=== PATIENT | male | born 1985 | race Caucasian/White ===

== ENCOUNTER 2019-08-30 14:08 | Outpatient (CLI) | payer BC ==
--- NOTE | 2019-08-30 16:31 | RAD ---
CHEST TWO VIEWS: HISTORY: Cough. COMPARISON: Prior film from September 2016. FINDINGS: The lungs appear clear with no infiltrate. Heart size is upper normal and stable in appearance from t he prior study. Vasculature is upper normal and stable. No effusion. Osseous structures are unremarka ble. IMPRESSION: No acute process. No evidence of interval change. POS: [facility]
== END 2019-08-30 14:09 | disposition home or self-care (01) ==
LOC: SCSRAD 14:08
PROVIDERS: ATTEND Family Medicine
DX: R05 Cough (principal)
CPT/HCPCS: 71046

== ENCOUNTER 2020-11-01 09:44 | Outpatient (CLI) | payer BC ==
--- NOTE | 2020-11-01 14:31 | PET ---
Radionucleotide PET scan with CT attenuation correction HISTORY: Follicular lymphoma grade 1. Initial staging. COMPARISON: CT neck, chest, abdomen, pelvis from [facility] 10/11/2020. FINDINGS: While all of the enlarged lymph nodes detailed on the recent CT exams from [facility] are not hypermetabolic, most are. The hypermetabolic adenopathy is as follows: Right submandibular node 3.1 cm x 2.6 cm max SUV 9.8 Right submental lymph node 4.7 cm x 4.0 cm max SUV 8.5 Right medial jugular node 2.3 cm x 2.0 cm max SUV 8.7 Right prepectoral lymph nodes, largest 1.8 cm x 1.4 cm max SUV 3.4 Right axillary 7.4 cm x 5.7 cm max SUV 19.5 Left retroperitoneal periaortic 4.4 cm x 1.7 cm max SUV 3.5 Left inguinal 3.5 cm x 3.1 cm max SUV 9.1 Left inguinal 3.5 cm x 3.2 cm max SUV 9.7 A small, elongated focus of increased uptake involving the lateral margin of the right liver lobe ant erior segment shows max SUV 4.8. An associated mass is not well demonstrated on CT images. Immediately superior to the anterior aspect of the spleen, an oval focus of increased uptake max SUV 7.6 is associated with far leftward extension of the lateral segment left liver lobe. Again, a low density mass is not appreciable on CT imaging. A tiny focus of increased uptake involving the left hip greater trochanter base shows max SUV 6.3. A focal area of increased uptake involving the left mandibular body shows max SUV 6.5. IMPRESSION : Hypermetabolic lymphadenopathy involving the head/neck, chest, abdomen, and pelvis as detailed above. There is also involvement of the liver, mandible, and left femur.
== END 2020-11-01 09:45 | disposition home or self-care (01) ==
LOC: PET 09:44
PROVIDERS: ATTEND Internal Medicine Hematology & Oncology
DX: C82.00 Follicular lymphoma grade I, unspecified site (principal); R59.0 Localized enlarged lymph nodes
CPT/HCPCS: 78815; A9552

== ENCOUNTER 2020-11-05 08:20 | Day surgery (SDC) | payer BC ==
[2020-11-04 13:21] VITALS: BMI 62.6
[2020-11-05 08:51] LABS: #Basophils 0.1 thou/uL (0.0-0.2); #Eosinphils 0.1 thou/uL (0.0-0.7); #Monocytes 0.7 thou/uL (0.11-0.59); #Neutrophils 6.3 thou/uL (1.40-6.50); %Basophils 0.5 % (0.0-1.0); %Eosinophils 1.2 % (0.0-10.0); %Lymphocytes 21.6 % (21.0-51.0); %Monocytes 7.4 % (0.0-10.0); %Neutrophils 69.2 % (42.0-75.0); Hemoglobin 14.8 g/dL (14.0-18.0); Mean Corpuscular HGB CONC 35.1 g/dL (32.0-36.0); Mean Corpuscular Hemoglobin 32.1 pg (27.0-31.0); Mean Corpuscular Volume 91.3 fL (78.0-98.0); Mean Platelet Volume 6.5 fL (7.4-10.4); Platelet Count 239 thou/uL (130-400); RBC Distribution Width 12.3 % (11.5-14.5); Red Blood Cell (RBC) Count 4.61 mill/uL (4.70-6.10); White Blood Cell (WBC) Count 9.1 thou/uL (4.8-10.8)
[2020-11-05] MEDS ORDERED: Prevnar 13-Val Conj/PF 0.5 ML SYRINGE IM ONE (09:00)
[2020-11-05 09:01] LABS: PTT 26.2 sec (22.9-36.1); Prothrombin Time 13.2 sec (12.0-14.7)
[2020-11-05] MEDS ORDERED: Sodium Chloride 0.9% 10 ML ONE (09:16)
[2020-11-05] MEDS ORDERED: Fentanyl 100 MCG/2 ML VIAL ONE (10:00)
[2020-11-05] MEDS ORDERED: Midazolam HCl 2 mg/2 ml Vial ONE (10:01)
[2020-11-05] MEDS ORDERED: Sodium Bicarbonate 2.5 MEQ/5 ML VIAL ONE (10:02)
[2020-11-05 11:20] VITALS: BP 158/96; TEMP 98.6
--- NOTE | 2020-11-05 11:48 | CT ---
CT GUIDED RIGHT ILIAC BONE MARROW ASPIRATION AND BIOPSY: CLINICAL HISTORY: Lymphoma. PROCEDURE: The procedure including the risks and complications were explained to the patient, and informed conse nt was obtained. The patient was placed on the CT scan table in the prone position. Conscious sedation for a total [id number] was performed, administered by the radiology nurse, with the patient consistently monitored throughout the duration of the exam in stable condition. Noncontrasted CT images were obtained through the pelvis. An area was marked overlying the RIGHT cari c bone, and the area was meticulously prepped and draped in usual sterile fashion. The skin and subcutaneous tissues were infiltrated with buffered 1% lidocaine for local anesthesia. After a small skin incision was made, an 11-gauge needle was advanced and positioning was confirmed w ith axial CT images. Approximately 10 milliliters of bone marrow aspirate was obtained. The needle was then further advanced, and a bone marrow biopsy was performed. The needle was removed, and hemost asis was achieved with direct pressure. The patient tolerated the procedure well and without immediate complication. The patient was transported to radiology nurses holding area for further anita toring prior to discharge. IMPRESSION: Technically successful percutaneous bone marrow aspiration and biopsy. Pathology results are pending.
--- NOTE | 2020-11-07 13:16 | CT ---
"PRELIMINARY REPORT" CT GUIDED RIGHT ILIAC BONE MARROW ASPIRATION AND BIOPSY: CLINICAL HISTORY: Lymphoma. PROCEDURE: The procedure including the risks and complications were explained to the patient, and informed conse nt was obtained. The patient was placed on the CT scan table in the prone position. Conscious sedation for a total [id number] was performed, administered by the radiology nurse, with the patient consistently monitored throughout the duration of the exam in stable condition. Noncontrasted CT images were obtained through the pelvis. An area was marked overlying the RIGHT cari c bone, and the area was meticulously prepped and draped in usual sterile fashion. The skin and subcutaneous tissues were infiltrated with buffered 1% lidocaine for local anesthesia. After a small skin incision was made, an 11-gauge needle was advanced and positioning was confirmed w ith axial CT images. Approximately 10 milliliters of bone marrow aspirate was obtained. The needle was then further advanced, and a bone marrow biopsy was performed. The needle was removed, and hemost asis was achieved with direct pressure. The patient tolerated the procedure well and without immediate complication. The patient was transported to radiology nurses holding area for further anita toring prior to discharge. IMPRESSION: Technically successful percutaneous bone marrow aspiration and biopsy. Pathology results are pending. Transcribed Date/Time: 11/07/2020 1:16 PM
== END 2020-11-05 12:40 | disposition home or self-care (01) ==
LOC: CT 08:20
PROVIDERS: ATTEND Internal Medicine Hematology & Oncology
PROC: 079T3ZX Drainage of Bone Marrow, Percutaneous Approach, Diagnostic (ICD-10-PCS; principal; 2020-11-05)
PROC: 07DR3ZX Extraction of Iliac Bone Marrow, Percutaneous Approach, Diagnostic (ICD-10-PCS; principal; 2020-11-05)
DX: C85.19 Unspecified B-cell lymphoma, extranodal and solid organ sites (principal); C82.03 Follicular lymphoma grade I, intra-abdominal lymph nodes
CPT/HCPCS: 20225; 36415; 77002; 85025; 85097; 85610; 85730; 88184; 88237; 88305; 88311; 88313; 88341; 88342; 88365; J2250; J3010

== ENCOUNTER 2020-11-20 07:12 | Day surgery (SDC) | payer BC ==
[2020-11-19 08:11] VITALS: BMI 62.0
[2020-11-20] MEDS ORDERED: Ketorolac Tromethamine 30 MG/ML VIAL ONE (07:50)
[2020-11-20] MEDS ORDERED: Lidocaine 1% w/Epinephrine 1:100K 20 ML VIAL ONE (09:33)
[2020-11-20] MEDS ORDERED: Bupivacaine 0.25% HCL 30 ML VIAL ONE (09:33)
[2020-11-20] MEDS ORDERED: PROPOFOL 200 MG/20 ML VIAL ONE (09:41)
[2020-11-20] MEDS ORDERED: Dexamethasone 20 MG/5 ML VIAL ONE (09:41)
[2020-11-20] MEDS ORDERED: Lidocaine 1% PF 5 ML VIAL ONE (09:41)
[2020-11-20] MEDS ORDERED: Succinylcholine 200 MG/10 ml SYRINGE FS ONE (09:41)
[2020-11-20] MEDS ORDERED: Ondansetron PF 4 MG/2 ML Vial ONE (09:41)
[2020-11-20] MEDS ORDERED: Fentanyl 100 MCG/2 ML VIAL ONE (09:47)
--- NOTE | 2020-11-20 11:52 | RAD ---
EXAM: Single view of the chest HISTORY: Mediport placement COMPARISON: 10/20/2016 FINDINGS: Single view of the chest shows a normal sized cardiomediastinal silhouette. There is a rig ht IJ Mediport with its tip in the superior vena cava. No pneumothorax. There is no evidence of consolidation, mass, or pleural effusion. No acute osseous abnormality. IMPRESSION: Status post Mediport placement without evidence of complication.
--- NOTE | 2020-11-20 12:13 | PDOC.OP ---
Operative Note - Operative Note Operative Note: PROCEDURE: Right internal jugular MediPort placement with ultrasound and fluoroscopic guidance DATE OF PROCEDURE: 11/20/2020 SURGEON: Arabella Kim M.D. PREOPERATIVE DIAGNOSIS: Lymphoma POSTOPERATIVE DIAGNOSIS: Lymphoma HISTORY: Patient has been diagnosed with lymphoma. Chemotherapy has been recommended and a Mediport has been requested for this. Due to the patient's super morbid obesity the recommendation was made to place this in the internal jugular position. OPERATIVE PROCEDURE IN DETAIL: After informed consent was obtained and appropriate preoperative antibiotics administered, the patient was taken to the operating room and placed in supine position and monitored anesthesia care was administered. The patient was then placed in Trendelenburg position and tape used to elevate the excess subcutaneous tissues of the neck both down the axis of cutaneous tissues of the chest. The patient was prepped and draped in standard sterile fashion and the patent compressible right internal jugular vein accessed easily on the first attempt under direct ultrasound guidance. The wire was advanced and threaded easily but was shown on fluoroscopy to be going up the internal jugular. The wire was removed and the vein again accessed easily under direct ultrasound guidance. The wire threaded easily and was confirmed to be in the compressible vein by ultrasound and with the tip in the superior vena cava by fluoroscopy. Additional local anesthesia was infused to the skin and subcutaneous tissues of the right neck and chest. A skin incision was made on the right chest and a subcutaneous pocket developed inferiorly. A Mediport was obtained and confirmed to fit in the subcutaneous pocket. This was secured inferiorly to the subcutaneous fat with 2 Prolene sutures, which were clamped, but not tied. Mediport tubing was then tunneled from the chest to the right IJ access site subcutaneously. The dilator and sheath were then placed over the wire and the dilator and wire removed leaving the sheath in place. The clamped MediPort tubing was tunneled through the sheath, which was then split and removed leaving the MediPort tubing in place. The tubing was adjusted until the tip was confirmed by fluoroscopy to be in the superior vena cava just above the atrium. The tubing was clamped at the skin level and cut and the tubing secured to the port, which was then placed in the subcutaneous pocket. The previously placed suture was secured and two additional sutures were placed to fix the port in place within the pocket. The port was aspirated with the Donahue needle and had excellent flow of dark venous non-pulsatile blood and easily flushed without resistance. The subcutaneous tissues were closed with a running Monocryl suture, following which the skin was closed with a running subcuticular Monocryl suture. Dermabond dressings were placed. The course of the catheter was confirmed by fluoroscopy to be smooth with the tip appropriately located in the superior vena cava. The patient was taken back to recovery in good co ndition. Estimated blood loss was minimal. There were no complications. There were no specimens.
== END 2020-11-20 12:55 | disposition home or self-care (01) ==
LOC: SDC 07:12
PROVIDERS: ATTEND Surgery
PROC: B518ZZA Fluoroscopy of Superior Vena Cava, Guidance (ICD-10-PCS; principal; 2020-11-20)
PROC: 02HV33Z Insertion of Infusion Device into Superior Vena Cava, Percutaneous Approach (ICD-10-PCS; principal; 2020-11-20)
DX: C82.90 Follicular lymphoma, unspecified, unspecified site (principal)
CPT/HCPCS: 71045; C1788; J0690; J1100; J1642; J1885; J2405; J2704; J3010; S0020

== ENCOUNTER 2020-12-02 12:38 | Outpatient (CLI) | payer BC | END 2020-12-02 12:39 | disposition home or self-care (01) | LOC: ULT 12:38 | PROVIDERS: ATTEND Internal Medicine Hematology & Oncology | DX: Z51.11 Encounter for antineoplastic chemotherapy (principal); C83.38 Diffuse large B-cell lymphoma, lymph nodes of multiple sites; I08.1 Rheumatic disorders of both mitral and tricuspid valves; Z79.899 Other long term (current) drug therapy | CPT/HCPCS: 93306 ==

== ENCOUNTER 2020-12-13 10:46 | Outpatient (CLI) | payer BC ==
[2020-12-13] MEDS ORDERED: Heparin 1,000 UNITS/ML VIAL ONE (14:33)
== END 2020-12-13 10:47 | disposition home or self-care (01) ==
LOC: NM 10:46
PROVIDERS: ATTEND Internal Medicine Hematology & Oncology
DX: C83.38 Diffuse large B-cell lymphoma, lymph nodes of multiple sites (principal)
CPT/HCPCS: 78472; A9604; J1644

== ENCOUNTER 2021-02-14 07:40 | Outpatient (CLI) | payer BC | END 2021-02-14 07:41 | disposition home or self-care (01) | LOC: PET 07:40 | PROVIDERS: ATTEND Internal Medicine Hematology & Oncology | DX: C83.38 Diffuse large B-cell lymphoma, lymph nodes of multiple sites (principal); R91.8 Other nonspecific abnormal finding of lung field; R59.0 Localized enlarged lymph nodes | CPT/HCPCS: 78815; A9552 ==

== ENCOUNTER 2021-09-12 09:51 | Outpatient (CLI) | payer BC | END 2021-09-12 09:52 | disposition home or self-care (01) | LOC: PET 09:51 | PROVIDERS: ATTEND Internal Medicine Hematology & Oncology | DX: C83.30 Diffuse large B-cell lymphoma, unspecified site (principal) | CPT/HCPCS: 78815; A9552 ==

== ENCOUNTER 2022-05-01 08:00 | Outpatient (CLI) | payer BC | END 2022-05-01 08:01 | LOC: PET 08:00 | PROVIDERS: ATTEND Internal Medicine Hematology & Oncology | DX: C83.38 Diffuse large B-cell lymphoma, lymph nodes of multiple sites (principal); C82.03 Follicular lymphoma grade I, intra-abdominal lymph nodes | CPT/HCPCS: 78815; A9552 ==

== ENCOUNTER 2023-08-06 11:45 | Outpatient (CLI) | payer BC | END 2023-08-06 11:46 | LOC: PET 11:45 | PROVIDERS: ATTEND Internal Medicine Hematology & Oncology | DX: C83.38 Diffuse large B-cell lymphoma, lymph nodes of multiple sites (principal); C82.03 Follicular lymphoma grade I, intra-abdominal lymph nodes | CPT/HCPCS: 78815; A9552 ==

== ENCOUNTER 2025-06-22 08:00 | Outpatient (CLI) | payer BC | END 2025-06-22 08:01 | disposition home or self-care (01) | LOC: PET 08:00 | PROVIDERS: ATTEND Internal Medicine Hematology & Oncology | DX: C83.38 Diffuse large B-cell lymphoma, lymph nodes of multiple sites (principal); C82.03 Follicular lymphoma grade I, intra-abdominal lymph nodes; C82.20 Follicular lymphoma grade III, unspecified, unspecified site | CPT/HCPCS: 78815; A9552 ==